=== PATIENT | female | born 1945 | race Caucasian/White ===

== ENCOUNTER → 2016-02-24 | Outpatient (CLI) | payer MEDICARE, OTHER | LOC: GMAB 11:51 | PROVIDERS: ATTEND Family Medicine | DX: I10 Essential (primary) hypertension (principal) ==

== ENCOUNTER → 2017-03-01 | Outpatient (CLI) | payer OTHER, SELFPAY | END | disposition home or self-care (01) | LOC: GMAB 11:08 | PROVIDERS: ATTEND Family Medicine | DX: I10 Essential (primary) hypertension (principal) ==

== ENCOUNTER → 2018-03-11 | Outpatient (CLI) | payer MEDICARE | LOC: GMAE 10:52 | PROVIDERS: ATTEND Family Medicine | DX: I10 Essential (primary) hypertension (principal) ==

== ENCOUNTER → 2019-03-20 | Outpatient (CLI) | payer MEDICARE | LOC: GMAE 10:37 | PROVIDERS: ATTEND Family Medicine | DX: I10 Essential (primary) hypertension (principal); E78.2 Mixed hyperlipidemia; E11.9 Type 2 diabetes mellitus without complications ==

== ENCOUNTER 2019-06-26 17:22 | Observation (INO) | payer MEDICARE ==
[2019-06-26] MEDS ORDERED: ASPIRIN TABLET 325 MG TAB ONE (18:04)
[2019-06-26] MEDS ORDERED: ASPIRIN TABLET 325 MG TAB PO ONE (18:06)
--- NOTE | 2019-06-26 19:38 | RAD ---
EXAM DESCRIPTION: Chest,2 Views CLINICAL HISTORY: 74 years Female pain between shoulder blades COMPARISON: None TECHNIQUE: Two view study of the chest was performed. FINDINGS: Cardiac silhouette is enlarged. Central vessels are moderately increased. Retrocardiac air soft tissue density consistent with moderate-sized hiatal hernia. Patchy airspace opacities lower lungs bilaterally. No effusions bilaterally. No pneumothorax. IMPRESSION: Enlarged heart with moderate central congestion. Moderate-sized hiatal hernia. Atelectatic change versus infiltrate lower lungs bilaterally. Electronically signed by: Sheila Snell MD 06/26/2019 7:36 PM CDT
[2019-06-26] MEDS ORDERED: METOPROLOL TARTRATE 25 MG TAB PO ONE (20:33)
[2019-06-26] MEDS ORDERED: ACETYLCYSTEIN 20 % 6,000 MG/30 ML VIAL PO ONE (20:34)
--- NOTE | 2019-06-26 21:53 | CT ---
EXAM DESCRIPTION: CTA Chest CLINICAL HISTORY: 74 years Female elevated ddimer, new afib COMPARISON: None TECHNIQUE: Images were obtained in axial, sagittal, and coronal planes. Intravenous contrast was administered. 3-D MIP imaging was performed. This exam was performed according to our departmental dose-optimization program which includes use of Automated Exposure Control, adjustment of the mA and/or kV according to patient size and/or use of iterative reconstruction technique. FINDINGS: No filling defects pulmonary arteries bilaterally. No aortic dissection or dilatation. Tortuosity descending aorta. No pericardial or pleural effusions bilaterally. No adenopathy. Large hiatal hernia. No lung parenchymal infiltrates or nodules seen. Increased pulmonary vascularity. No acute osseous abnormality. Moderate degenerative change thoracolumbar spine. No abnormality upper abdomen. IMPRESSION: No evidence for pulmonary embolus. No aortic dissection. Enlarged heart with increased pulmonary vascularity. Large hiatal hernia. Electronically signed by: Sheila Snell MD 06/26/2019 9:52 PM CDT
[2019-06-26] MEDS ORDERED: ENOXAPARIN SODIUM 30 MG/0.3 ML SYG SUBCU ONE (22:10)
[2019-06-26] MEDS ORDERED: ENOXAPARIN SODIUM 100 MG/ML SYG SUBCU ONE (22:10)
--- NOTE | 2019-06-26 22:14 | ED.PDOC ---
History of Present Illness - General Chief Complaint: Chest Pain/ID Stated Complaint: chest pain Time Seen by Provider: 06/26/19 17:22 Source: patient Exam Limitations: no limitations - History of Present Illness Initial Comments: The patient is a 74-year-old female presented emergency room secondary to reports of pain intermittent spasming between her shoulder blades when she goes to move. This is been going on for the last 3 to 4 days intermittently. Not associated with any real exertion. No chest pain. No shortness of breath. No syncope or near syncope. She does report that for the last month or so she has been having a sensation of her heart racing. No chest pain with it. No shortness of breath with it. No syncope. The patient is a patient of Dr. Borrero and Dr. Sawant. She has had a nuclear stress test about 3 years ago according to her that was fine. No significant history of any cardiac issues. She does take blood pressure medications but nothing to control rate. Initial an EKG upon arrival here shows normal sinus rhythm however the patient did flip over into atrial fibrillation atrial flutter with heart rates up into the 140s a t one point here. No chest pain with those episodes. Timing/Duration: unsure Severity: moderate Improving Factors: nothing Worsening Factors: nothing Associated Symptoms: denies symptoms Allergies/Adverse Reactions: Allergies Sulfa Drugs Allergy (Unknown, Verified 06/26/19 17:59) Home Medications: Ambulatory Orders Aspirin 81 mg PO LAURA-OTH-DAY 01/01/13 Calcium Carbonate-Cholecalcife [Calcium 500/Vitamin D3 500-400 mg-Unit] 2 tab PO DAILY 01/01/13 Esomeprazole Magnesium [Nexium] 40 mg PO DAILY 01/01/13 Furosemide 40 mg PO DAILY 01/01/13 Meloxicam 7.5 mg PO LAURA-OTH-DAY 01/01/13 Multiple Vitamins W/ Minerals [Multi For Her 50+] 1 tab PO DAILY 01/01/13 Olmesartan Medoxomil [Benicar] 20 mg PO DAILY 01/01/13 Potassium Chloride [Micro-K] 10 meq PO DAILY 01/01/13 glipiZIDE [Glucotrol] 5 mg PO BID 01/01/13 Invokana 1 each PO DAILY 11/11/14 Liraglutide [Victoza] 6 mg SC DAILY 11/11/14 Review of Systems - Review of Systems Constitutional: States: no symptoms reported EENTM: States: no symptoms reported Respiratory: States: no symptoms reported Cardiology: States: palpitations Gastrointestinal/Abdominal: States: no symptoms reported Genitourinary: States: no symptoms reported Musculoskeletal: States: back pain Skin: States: no symptoms reported Neurological: States: no symptoms reported Endocrine: States: no symptoms reported All other Systems: No Change from Baseline Past Medical History (General) - Patient Medical History Hx Stroke: No Hx Cardiac Disorders: Yes Hx Congestive Heart Failure: No Hx Pacemaker: No Hx Hypertension: Yes Hx Diabetes: Yes Hx Cancer: No Hx Hepatitis C: No Hx MRSA: No Surgical History: tonsillectomy, Hysterectomy - Vaccination History Hx Influenza Vaccination: Yes - 2019 Hx Pneumococcal Vaccination: Yes - Social History Hx Tobacco Use: No Hx Alcohol Use: No Hx Substance Use: No Hx Substance Use Treatment: No Family Medical History - Family History Mother Living Status: Cause of : cancer Hx Family Cancer: Yes - breast with METs Physical Exam - Physical Exam General Appearance: Alert, Comfortable, No apparent distress Eye Exam: bilateral normal Ears, Nose, Throat: hearing grossly normal, normal ENT inspection Neck: full range of motion, supple Respiratory: lungs clear, normal breath sounds, no respiratory distress, no accessory muscle use Cardiovascular/Chest: normal peripheral pulses, regular rate, rhythm, no edema, irregularly irregular Peripheral Pulses: radial,right: 2+, radial,left: 2+ Gastrointestinal/Abdominal: non tender, soft Rectal Exam: deferred Back Exam: other - Tenderness palpation over bilateral rhomboid muscles. This does reproduce the back pain. Extremity: normal range of motion, non-tender, normal inspection, no pedal edema, no calf tenderness, normal capillary refill Neurologic: lining cutter II-XII nml as tested, alert, normal mood/affect, oriented x 3 Skin Exam: normal color Comments: Vital Signs - 24 hr 06/26/19 06/26/19 06/26/19 17:55 17:59 18:22 Temperature 98.0 F Pulse Rate Pulse Rate [ 89 75 75 monitor] Respiratory 20 18 16 Rate Blood Pressure 145/72 148/81 [LFA] O2 Sat by Pulse 96 98 Oximetry 06/26/19 06/26/19 06/26/19 19:22 19:35 20:00 Temperature 98.3 F Pulse Rate Pulse Rate [ 66 74 93 H monitor] Respiratory 16 16 16 Rate Blood Pressure 146/83 164/77 125/94 [LFA] O2 Sat by Pulse 100 96 95 Oximetry 06/26/19 06/26/19 06/26/19 21:00 21:48 22:00 Temperature 97.9 F Pulse Rate 76 Pulse Rate [ 98 H 70 72 monitor] Respiratory 16 18 18 Rate Blood Pressure 160/85 148/73 151/71 [LFA] O2 Sat by Pulse 93 L 93 L 99 Oximetry Progress - Progress Progress: 06/26/19 22:18 The patient is a 74-year-old female presented emergency room secondary to central back pain that looks to be rhomboid muscle strain. She was given exercises. Topical heat may also prove beneficial. Massage may also prove beneficial. The patient is being admitted to the hospital overnight for what appears to be a new diagnosis of paroxysmal atrial fibrillation. A formal rule out should be done on the patient. CT angiogram of the chest shows no evidence of any pulmonary embolus or significant aortic pathology to explain it. The patient has been given a dose of oral metoprolol to help with the issue. She is also being dosed with a dose of Lovenox and aspirin here. The patient will be monitored overnight. She is currently asymptomatic and back in sinus rhythm. michelle elijah [email or web address] - Results/Orders Results/Orders: Chest x-ray shows cardiomegaly with increased pulmonary vascular congestion. CT scan of the chest with angiography shows no evidence of any acute vascular pathology. No pulmonary embolus. There is increased pulmonary vascular congestion increased cardiomegaly and a hiatal hernia. 06/26/19 17:47 Telemetry .CONTINUOUS Shows paroxysmal atrial fibrillation and atrial flutter with tachycardia. Initial EKG shows normal sinus rhythm at 80 bpm with left axis deviation and inc omplete right bundle branch block. Normal QT interval. Normal R wave progression. No ST segment or T wave changes indicative of acute ischemia. Repeat EKG shows atrial fibrillation at a rate of 109 bpm. Left axis deviation. Both EKGs actually show an early right bundle branch block. No evidence of ischemia. Laboratory Results - last 24 hr 06/26/19 06/26/19 06/26/19 17:53 17:53 17:53 WBC 8.3 RBC 3.92 L Hgb 11.8 L Hct 35.9 L MCV 91.7 MCH 30.2 MCHC 32.9 L RDW 14.4 Plt Count 195 MPV 10.9 H Absolute Neuts (auto) 5.90 Absolute Lymphs (auto) 1.30 Absolute Monos (auto) 0.80 Absolute Eos (auto) 0.20 Absolute Basos (auto) 0.10 Neutrophils % 71.5 Lymphocytes % 15.8 L Monocytes % 9.7 H Eosinophils % 2.2 Basophils % 0.8 PT 10.6 INR 1.07 PTT (SP) 21.0 L D-Dimer, Quantitative 470 H Sodium 138 Potassium 4.4 Chloride 105 Carbon Dioxide 26 Anion Gap 11.4 L BUN 31 H Creatinine 0.82 BUN/Creatinine Ratio 37.8 H Random Glucose 113 H Serum Osmolality 283.0 Calcium 8.8 Magnesium 2.1 Total Bilirubin 1.0 AST 48 H ALT 34 Alkaline Phosphatase 69 Creatine Kinase 61 CK-MB (CK-2) 1.1 CK-MB (CK-2) % Not Reportable Troponin I < 0.02 B-Natriuretic Peptide 89.2 Serum Total Protein 7.1 Albumin 3.6 Globulin 3.5 Albumin/Globulin Ratio 1.0 L 06/26/19 20:50 WBC RBC Hgb Hct MCV MCH MCHC RDW Plt Count MPV Absolute Neuts (auto) Absolute Lymphs (auto) Absolute Monos (auto) Absolute Eos (auto) Absolute Basos (auto) Neutrophils % Lymphocytes % Monocytes % Eosinophils % Basophils % PT INR PTT (SP) D-Dimer, Quantitative Sodium Potassium Chloride Carbon Dioxide Anion Gap BUN Creatinine BUN/Creatinine Ratio Random Glucose Serum Osmolality Calcium Magnesium Total Bilirubin AST ALT Alkaline Phosphatase Creatine Kinase 62 CK-MB (CK-2) 1.2 CK-MB (CK-2) % Not Reportable Troponin I < 0.02 B-Natriuretic Peptide Serum Total Protein Albumin Globulin Albumin/Globulin Ratio - EKG/XRAY/CT CT Ordered: No CT Interpretation Call Back: No Departure - Departure Clinical Impression: Paroxysmal atrial fibrillation with rapid ventricular response Strain of rhomboid muscle Qualifiers: Encounter type: initial encounter Qualified Code(s): S29.012A - Strain of muscle and tendon of back wall of thorax, initial encounter Disposition: Admit Patient Condition: Fair Departure Forms: ED Discharge - Pt. Copy, Patient Portal Self Enrollment Referrals: NIKOS SAWANT MD [Primary Care Provider] - 1-2 Weeks Home Medications: Ambulatory Orders Aspirin 81 mg PO LAURA-OTH-DAY 01/01/13 Calcium Carbonate-Cholecalcife [Calcium 500/Vitamin D3 500-400 mg-Unit] 2 tab PO DAILY 01/01/13 Esomeprazole Magnesium [Nexium] 40 mg PO DAILY 01/01/13 Furosemide 40 mg PO DAILY 01/01/13 Meloxicam 7.5 mg PO LAURA-OTH-DAY 01/01/13 Multiple Vitamins W/ Minerals [Multi For Her 50+] 1 tab PO DAILY 01/01/13 Olmesartan Medoxomil [Benicar] 20 mg PO DAILY 01/01/13 Potassium Chloride [Micro-K] 10 meq PO DAILY 01/01/13 glipiZIDE [Glucotrol] 5 mg PO BID 01/01/13 Invokana 1 each PO DAILY 11/11/14 Liraglutide [Victoza] 6 mg SC DAILY 11/11/14 Decision To Admit - Decistion To Admit Decision to Admit Reason: Medical Nature Decision to Admit Date: 06/26/19 Decision to Admit Time: 22:19
[2019-06-27] MEDS ORDERED: MORPHINE SULFATE INJ 10 MG/ML VIAL IV PRN (00:12)
[2019-06-27] MEDS ORDERED: ACETAMINOPHEN 325 MG TAB PO PRN (00:12)
[2019-06-27] MEDS ORDERED: NITROGLYCERIN 0.4 MG 25 EA TAB SL PRN (00:12)
[2019-06-27] MEDS ORDERED: SODIUM CHLORIDE 0.9% (FLUSH) 10 ML SYG IV PRN (00:12)
[2019-06-27] MEDS ORDERED: IV SET AND CAP CHANGE INJ INJ SCH (00:30)
[2019-06-27 06:28] VITALS: TEMP 97.6
[2019-06-27] MEDS ORDERED: PANTOPRAZOLE SODIUM IV 40 MG VIAL IV SCH (06:30)
[2019-06-27] MEDS ORDERED: SODIUM CHLORIDE 0.45% 1000ML 1,000 ML IVS PRN (06:57)
[2019-06-27] MEDS ORDERED: METOPROLOL TARTRATE INJ 5 MG/5 ML VIAL IV ONE ×2 (07:51→07:52)
[2019-06-27] MEDS ORDERED: POTASSIUM CHLORIDE 10 MEQ TAB PO ONE (08:29)
[2019-06-27 08:55] VITALS: O2SAT 96
[2019-06-27] MEDS ORDERED: (Empagliflozin [Jardiance] 25 MG) PO SCH (09:00)
[2019-06-27] MEDS ORDERED: POTASSIUM CHLORIDE 10 MEQ TAB PO SCH (09:00)
[2019-06-27] MEDS ORDERED: FUROSEMIDE 40 MG TAB PO SCH (09:00)
[2019-06-27] MEDS ORDERED: NON-FORMULARY MEDICATION 1 EA MIS (Olmesartan Medoxomil [Benicar] 20 MG) PO SCH (09:00)
[2019-06-27] MEDS ORDERED: glipiZIDE 5 MG TAB PO SCH (09:00)
[2019-06-27] MEDS ORDERED: SODIUM CHLORIDE 0.9% (FLUSH) 10 ML SYG IV SCH (09:00)
[2019-06-27] MEDS ORDERED: METOPROLOL TARTRATE 25 MG TAB PO SCH (09:00)
[2019-06-27] MEDS ORDERED: BIFIDOBACTERIUM INFANTIS 4 MG CAP PO SCH (09:00)
[2019-06-27] MEDS ORDERED: LIRAGLUTIDE 6 MG SC SCH (09:00)
[2019-06-27] MEDS ORDERED: LOSARTAN POTASSIUM 25 MG TAB PO SCH (11:30)
--- NOTE | 2019-06-27 12:06 | US ---
EXAM DESCRIPTION: Venous,Lower Extremity LT CLINICAL HISTORY: elevated DVT COMPARISON: None Available. TECHNIQUE: Left lower extremity venous duplex FINDINGS: There is no DVT identified. There is normal color flow observed with good flow augmentation. All deep veins compress normally. IMPRESSION: Negative for DVT Electronically signed by: Jovanna Barrientos MD 06/27/2019 12:04 PM CDT
--- NOTE | 2019-06-27 12:06 | US ---
EXAM DESCRIPTION: Venous,Lower Extremity RT CLINICAL HISTORY: elevated DVT COMPARISON: None Available. TECHNIQUE: Right lower extremity venous duplex FINDINGS: There is no DVT identified. There is normal color flow observed with good flow augmentation. All deep veins compress normally. IMPRESSION: Negative for DVT Electronically signed by: Jovanna Barrientos MD 06/27/2019 12:05 PM CDT
[2019-06-27] MEDS ORDERED: FLUCONAZOLE 150 MG TAB PO ONE (13:15)
[2019-06-27 14:00] VITALS: BP 123/64
[2019-06-28] MEDS ORDERED: ASPIRIN TABLET 325 MG TAB PO SCH (09:00)
--- NOTE | 2019-06-28 12:27 | SSS ---
SUPERVISING PHYSICIAN: Renato Mejias MD DATE OF ADMISSION: 06/27/19 DATE OF DISCHARGE: 06/27/19 CHIEF COMPLAINT: Chest pain. ADMISSION DIAGNOSES: 1. Heart palpitations without reported chest pains. 2. Normocytic/normochromic anemia likely chronic. 3. Elevated D-dimer, uncertain etiology. 4. Gastroesophageal reflux disease. 5. Hypertension. 6. Hyperlipidemia. 7. Iron-deficiency anemia. 8. Obesity with body mass index of 45.8. 9. Previous umbilical hernias. DISCHARGE DIAGNOSES: 1. PSVT versus optimals supraventricular tachycardia responding to beta blockers in the form of metoprolol with no reported chest pains or acute changes on EKG with elevated D-dimer noted on admission with CTA and ultrasound showing to be negative. 2. Elevated transaminase, uncertain etiology, with pending hepatitis panel. 3. Yeast infection in a chronic diabetic. 4. Mild leukocytosis, likely an acute demarginalization from stress event with no signs of infective process other than a mild yeast infection which was treated with Diflucan. 5. Gastroesophageal reflux disease. 6. Hypertension. 7. Hyperlipidemia. 8. Iron-deficiency anemia. 9. Obesity with body mass index of 45.8. 10. Previous umbilical hernias. HISTORY OF PRESENT ILLNESS: Ms. Leong is a 74 year-old patient who presented to the Emergency Room yesterday afternoon complaining of some discomfort, spasms between her shoulder blades when she is moving. She endorses the symptoms have been going on for three or four days. She denied any actual chest pain, shortness of breath, no syncope or syncopal episodes. She does endorse that she has been having some sensation in her heart, been racing on and off for the last month but has not started any treatment for it. She did have a nuclear stress test in 2008 that was within normal limits with no concerning findings. She has no significant history of cardiac issues other than blood pressure but does not take anything for rate control. The initial EKG on arrival to the Emergency Room showed she had a normal sinus rhythm but slipped into what looked like an atrial fibrillation/flutter with rates ranging in the 140s. She denied any chest pains with those episodes and actually, before she was given a beta yeimy, she converted back into a sinus rhythm. LABORATORY: Normal white count at 8,300 without a left shift. Hemoglobin 11.8, hematocrit 35.9. Coagulation studies showed a slightly elevated D-dimer at 470 with upper end being 400. PT/PTT were normal. Chemistries initially showed slightly elevated BUN of 31, creatinine 0.82, Other electrolytes were within normal limits including magnesium at 2.1, calcium at 8.8. Liver enzymes and troponins times 4 sets was less than 0.02. TSH normal at 0.51. Urinalysis showed 500 glucose, trace intact blood with 1+ budding yeast. Given the acuteness of what looked like PSVT and the fact that wasn't on rate control with some palpitations currently, patient was placed in observation for further cardiac telemetry monitoring and evaluation. She was placed in observation in stable condition. PAST MEDICAL HISTORY: 1. Gastroesophageal reflux disease. 2. Hypertension. 3 Type 2 diabetes mellitus. 4. Iron-deficiency anemia. 5. Osteoporosis. PAST SURGICAL HISTORY: 1. Bilateral knee replacements. 2. Appendectomy. 3. Hysterectomy. 4. Ovarian cyst removal. 5. Five hernia repairs. 6. Bilateral carpal tunnel. CURRENT MEDICATIONS: Please see updated list of medications on discharge. ALLERGIES: SULFA DRUGS. FAMILY HISTORY: Father at age 35 from lung cancer problems. Mother at age 68 with breast cancer history. Two sister, one recently at age 75 from multiple myeloma. SOCIAL HISTORY: The patient is a retired teacher. She is and lives in [place]. She drinks alcohol on a very rare occasion and has never smoked. She does not use illicit drugs. REVIEW OF SYSTEMS: CONSTITUTIONAL: Denies general malaise, fevers, weakness. HEENT: Denies headaches. vision changes, sore throat. nasal congestion, vision changes. CHEST: Denies shortness of breath, wheezing or coughing. HEART: Denies chest pain, does note in history of present illness palpitations but denies any syncopal episodes or presyncopal episodes. . ABDOMEN: Denies nausea, vomiting, diarrhea or constipation or abdominal pains. GENITOURINARY: Denies dysuria, hematuria or polyuria. MUSCULOSKELETAL: Denies joint swelling, edema. Does have chronic back pain. SKIN: Denies lesions, rashes, moles or unexplained changes. NEUROLOGIC: Denies ataxia, seizures, vision changes or headaches. HEMATOLOGICAL: Denies unexplained bleeding, easy bruising or transfusion reactions. PHYSICAL EXAMINATION: VITAL SIGNS: Initially in the Emergency Room, she was showing to be afebrile with a temperature of 98, pulse 89. She did show some palpitations with a run of PSVTs in the 140s but back on admission right before beta yeimy was in the 80s. Blood pressure 145/72, respirations 20, oxygen saturation 96% on room air. Again this morning, she did have a run of PSVTs, was converted after she was given a beta yeimy and on discharge her temperature was 97.6, pulse 78, blood pressure 123/64, respirations 18, oxygen saturation 96% on room air. GENERAL: The patient appears to be in no acute distress. She is alert, she does look moderately obese with a BMI of 45. HEENT: Tympanic membranes are clear bilaterally. Oropharynx is pink and moist without any lesions. NECK: Supple, non-tender, full range of motion. No jugular venous distention. CHEST: Lungs clear to auscultation bilaterally without any rhonchi, rales, or wheezes. CARDIOVASCULAR: Regular rate and rhythm without appreciable murmurs, rubs, or gallops. ABDOMEN: Obese but soft, non-tender, positive bowel sounds. EXTREMITIES: Without cyanosis, clubbing, or edema. NEUROLOGIC: Cranial nerves II through XII were grossly intact. Facial features were symmetrical. Extraocular movements within normal limits. There was no notable nystagmus. She remained alert and oriented x 3. SKIN: Warm, pink and dry. LABORATORY: CBC on discharge was 12,100. Hemoglobin 11.7, hematocrit 36.1, platelet count 182,000. Coagulation studies showed a normal PT/PTT with a BUN slightly elevated at 470. Chemistries on discharge showed normal electrolytes, creatinine 0.75, liver enzymes were showing elevation at 170 for AST, ALT was 181. TSH normal at 0.51 and troponins were all less than 0.002 times 3. Magnesium 2.1, calcium 8.8. Urinalysis showed 500 glucose with trace intact blood. Microscopic revealed 1+ budding yeast and rare bacteria. No WBCs, 1 to 3 RBCs with 3 to 5 epithelials. Hepatitis panel was pending. MICROBIOLOGY: No specimens pending other than hepatitis panel. RADIOLOGY: She had a CT of the chest and thorax which showed no filling defects in the pulmonary arteries bilaterally with no aortic dissection, dilation, no pericardial or pleural effusions. There was note of a large hiatal hernia but no lung parenchymal interstitial nodules seen but there was not of increased pulmonary vasculature. Echocardiogram was pending at time of admission and discharge. Ultrasounds of bilateral lower extremities were negative for DVT per radiology interpretation. HOSPITAL COURSE: Ms. Leong was admitted for telemetry. She did have one additional episode of PSVTs in the morning but resolved with administration of metoprolol. She had no recurrence of pain, no other recurrence of ectopy. It was felt that she had responded and showed stability clinic-[facility] to continue with outpatient management which will include initiation of beta yeimy as well as followup with cardiology and 72-hour Holter monitor. ASSESSMENT: 1. PSVT versus optimals supraventricular tachycardia responding to beta blockers in the form of metoprolol with no reported chest pains or acute changes in EKG. 2. Gastroesophageal reflux disease. 3. Hypertension. 4. Hyperlipidemia. 5. Iron-deficiency anemia. 6. Obesity with body mass index of 45.8. 7. Previous umbilical hernias. PLAN: Ms. Leong is discharged to followup with Dr. Borrero and Dr. Sawant in the following week and to schedule appointments. She was to wear a Holter monitor for 72 hours and results sent to Dr. Sawant. I did start her on metoprolol for her ate control, 25 mg b.i.d. DIET: Diabetic diet as tolerated. ACTIVITIES: Increase as tolerated. MEDICATIONS ON DISCHARGE: Included new medication, prescription for metoprolol tartrate 25 mg b.i.d.. All other medications prior to hospitalization were continued as is. CONDITION ON DISCHARGE: Stable and improved. DISPOSITION: The patient was discharged home. #[id number] MTDD
== END 2019-06-27 14:39 | disposition home or self-care (01) ==
LOC: ER 17:22 → MS 22:26
PROVIDERS: ADMIT Nurse Practitioner Acute Care; ATTEND Nurse Practitioner Family
DX: I47.1 Supraventricular tachycardia (principal); R74.0 Nonspecific elevation of levels of transaminase and lactic acid dehydrogenase [LDH]; B37.9 Candidiasis, unspecified; E11.65 Type 2 diabetes mellitus with hyperglycemia; D72.829 Elevated white blood cell count, unspecified; K21.9 Gastro-esophageal reflux disease without esophagitis; I10 Essential (primary) hypertension; E78.5 Hyperlipidemia, unspecified; D50.9 Iron deficiency anemia, unspecified; R79.89 Other specified abnormal findings of blood chemistry; E66.9 Obesity, unspecified; M81.0 Age-related osteoporosis without current pathological fracture; I48.0 Paroxysmal atrial fibrillation; I45.10 Unspecified right bundle-branch block; K44.9 Diaphragmatic hernia without obstruction or gangrene; Z68.42 Body mass index [BMI] 45.0-49.9, adult; Z79.84 Long term (current) use of oral hypoglycemic drugs; Z79.82 Long term (current) use of aspirin; Z79.1 Long term (current) use of non-steroidal anti-inflammatories (NSAID); Z79.899 Other long term (current) drug therapy; Z88.2 Allergy status to sulfonamides; Z96.653 Presence of artificial knee joint, bilateral; Z90.49 Acquired absence of other specified parts of digestive tract; Z90.710 Acquired absence of both cervix and uterus; Z80.1 Family history of malignant neoplasm of trachea, bronchus and lung; Z80.3 Family history of malignant neoplasm of breast; Z80.7 Family history of other malignant neoplasms of lymphoid, hematopoietic and related tissues
CPT/HCPCS: 96374; 96375; 96372 ×2; J1650 ×2; J7799; 85379; 82553 ×4; 80053 ×2; 80061; 36415 ×3; 80074; 81001; 85025 ×2; 82550 ×4; 83735 ×2; 85730; 85610; 84443; 84484 ×4; 83880; 71046; 71275; 36430 ×2; 93971 ×2; 94760 ×2; 99285; 93306; 93005 ×4

== ENCOUNTER → 2019-06-27 | Outpatient (CLI) | payer MEDICARE | DX: I48.20 Chronic atrial fibrillation, unspecified (principal) ==

== ENCOUNTER → 2020-03-24 | Outpatient (CLI) | payer MEDICARE | LOC: GMAE 12:00 | PROVIDERS: ATTEND Family Medicine | DX: I10 Essential (primary) hypertension (principal); E11.9 Type 2 diabetes mellitus without complications ==